=== PATIENT | male | born 1975 | race Caucasian/White ===

== ENCOUNTER → 2022-08-19 | Outpatient (CLI) | payer OTHER ==
--- NOTE | 2022-08-19 15:40 | DIREP ---
PROCEDURE:XR ABDOMEN 2 VIEWS COMPARISON:None. INDICATIONS:Y99.0 CIVILIAN ACTIVITY DONE FOR INCOME OR PAY TECHNIQUE:Flat and upright views of the abdomen are provided. FINDINGS: BOWEL GAS PATTERN:Moderate mixed stool and gas throughout the colon. Mildly prominent gas-filled loops of small bowel are noted within the central abdomen. CALCIFICATIONS:No suspicious calcifications. LUNG BASES:Grossly clear. BONES:No acute abnormality. CONCLUSION: 1. Nonspecific mildly prominent gas-filled loops of small bowel throughout the abdomen may reflect ileus or potential enteritis. Small bowel obstruction is considered less likely. Moderate fecal burden. Consider further evaluation with CT as clinically warranted. 2. No suspicious calcifications. Dictated by: Randell Butler M.D. On 08/19/2022 at 03:36 PM
--- NOTE | 2022-08-19 16:08 | DIREP ---
PROCEDURE:XRAY RIBS 3VWS-RT COMPARISON:None. INDICATIONS:Y99.0 CIVILIAN ACTIVITY DONE FOR INCOME OR PAY FINDINGS: RIBS:No fracture. OTHER:No additional findings. CONCLUSION:Normal examination. Dictated by: Uriel Hilton DO on 08/19/2022 at 04:06 PM
--- NOTE | 2022-08-19 16:10 | DIREP ---
PROCEDURE:XRAY RIBS 3VWS-LT COMPARISON:[facility], CR, XRAY RIBS 3VWS-RT, 08/19/2022, 12:50 PM. INDICATIONS:Y99.0 CIVILIAN ACTIVITY DONE FOR INCOME OR PAY FINDINGS: RIBS:No fracture. OTHER:No additional findings. CONCLUSION:Normal examination. Dictated by: Uriel Hilton DO on 08/19/2022 at 04:07 PM
== END | disposition home or self-care (01) ==
LOC: RAD 12:46
PROVIDERS: ATTEND Nurse Practitioner Family
DX: S20.20XA Contusion of thorax, unspecified, initial encounter (principal); X58.XXXA Exposure to other specified factors, initial encounter; Y93.89 Activity, other specified; Y92.89 Other specified places as the place of occurrence of the external cause; Y99.0 Civilian activity done for income or pay
CPT/HCPCS: 74019; 71100-LT; 71100-RT